=== PATIENT | male | born 1960 | race Caucasian/White ===

== ENCOUNTER → 2017-11-24 | Outpatient (CLI) | payer BC | END | disposition home or self-care (01) | LOC: C.LABBFT 14:34 | PROVIDERS: ATTEND Internal Medicine | DX: N41.9 Inflammatory disease of prostate, unspecified (principal) ==

== ENCOUNTER → 2017-11-24 | Outpatient (CLI) | payer BC | END | disposition home or self-care (01) | LOC: C.LABBFT 14:00 | PROVIDERS: ATTEND Internal Medicine | DX: R39.9 Unspecified symptoms and signs involving the genitourinary system (principal) ==

== ENCOUNTER 2024-06-28 06:35 | Observation (INO) ==
--- NOTE | 2024-05-21 13:40 | PAT Medication Instructions ---
Medication Instructions Date of Service May 21, 2024 Home Medications Medication Instructions Recorded BiPap Machine See Rx Instructions .Route 01/14/21 .COMPLEX #1 ea BiPap Machine #1 ea 03/16/22 amlodipine 2.5 mg tablet 2.5 mg PO HS Take evening before surgery amlodipine 2.5 mg tablet 2.5 mg PO HS Other Notes NOTHING TO EAT OR DRINK AFTER MIDNIGHT If you have any questions please call us at [phone] or [phone] or [phone] or [phone]
--- NOTE | 2024-05-28 09:00 | Anesthesiology Consultation ---
Date of Service May 28, 2024 Assessment & Plan (1) Encounter for pre-operative examination: - Infectious disease screening: Per assessment on 05/28/24: No known recent infectious disease contacts or current infectious disease symptoms. - Outpatient joint assessment: Pt currently scheduled for inpatient pathway. If surgeon requests review for outpatient joint pathway, patient is not recommended candidate for outpatient joint program from anesthesia standpoint based on available information. Chart Review Chart Review: Acceptable Risk for Surgery and Patient seen in Pre Admission Testing Teaching & Discussion Pre-Anesthesia Teaching/Discussion Notes: Instructed NPO after midnight before surgery,except medications with 15 cc of water. Medication instructions provided according to the PAT guidelines. History Surgery Operation Date: 06/28/24 09:00 Proposed Procedures p Right Anterior Total Hip Arthroplasty - Teddy Rowe DO Height/Weight Height: 5 ft 8 in Weight: 129.1 kg Allergies Allergy/AdvReac Type Severity Reaction Status Date / Time No Known Allergies Allergy Verified 05/20/24 09:05 Medications Home Medications Medication Instructions Recorded Confirmed Last Taken BiPap Machine See Rx Instructions .Route 01/14/21 05/20/24 04/26/23 .COMPLEX #1 ea BiPap Machine #1 ea 03/16/22 03/25/24 Unknown amlodipine 2.5 mg tablet 2.5 mg PO HS 04/17/24 05/20/24 04/28/24 Past Medical History Medical History Deviated septum No surgery Dyslipidemia Per records, patient denies Fatty liver GERD (gastroesophageal reflux disease) History of colonic polyps History of gout Hypertension Laryngopharyngeal reflux Morbid obesity Osteoarthritis Seasonal allergies SI (sacroiliac) pain Steroid injections 12/2022 Sleep apnea BIPAP (compliant) Exercise / Class Metabolic Activity II 4-5 Yardwork/Stairs/Walk up hill (one FS: No CP, no SOB) Past Family History Family History Father Esophageal cancer Coronary heart disease Hypertension Sister Breast cancer Brother Prostate cancer, Onset Age: 55 Mother Family history of reaction to anesthesia sometimes gets confused after anesthesia Past Surgical History Surgical History H/O umbilical hernia repair History of colonoscopy 04/29/24, [facility] Past Anesthesia History No Hx of Anesthesia Complications and No Family Hx of Anesthesia Complications History of PONV No Hx of PONV and No Hx of Motion Sickness Social History Smoking Status: Never smoker Do You Dip or Chew Tobacco: No Hx Alcohol Use: No Hx Substance Use: No substance use type: does not use Review of Systems Patient denies chest pain, shortness of breath, dyspnea on exertion, fever, chills, cough, wheezing, palpitations. Physical Exam Vital Signs BP 130/84 P 60 TEMP 98.2 SP02 96%RA RESP 16 Physical Mildly decreased cervical extension range of motion. Full TMJ range of motion. TMD 3 finger breaths (difficult to palpate) Mallampati Score III (Macroglossia) Dentition: missing molar Lungs: clear throughout to auscultation Cardiac: regular rate and rhythm, no murmurs noted Spine: normal Carotid arteries: negative bruit Extremities: no LE edema Thick neck Lab Results Anesthesia Preop Results Results Anesthesia Widget: WBC 6.84 K/ul (4.8-10.8) 05/28/24 Hgb 15.9 g/dl (14.0-18.0) 05/28/24 Hct 47.0 % (42.0-52.0) 05/28/24 Plt 211 K/uL (130-400) 05/28/24 Na 139 mmol/L (136-145) 05/28/24 K 4.3 mmol/L (3.5-5.1) 05/28/24 Cl 106 mmol/L (98-107) 05/28/24 CO2 28 mmol/L (21-32) 05/28/24 BUN 21 mg/dl (6-23) 05/28/24 Creat 1.30 mg/dl (0.6-1.4) 05/28/24 Glucose Level 95 mg/dl (70-99(Fasting)) 05/28/24 PT 11.1 Seconds (9.0-12.0) 05/28/24 PTT 29 Seconds (21-31) 05/28/24 INR 1.0 (0.9-1.1) 05/28/24 Blood Type O Positive 05/28/24 Antibody Screen NEGATIVE 05/28/24 Testing Electrocardiogram Date: 05/28/24 SB with sinus arrhythmia at 49bpm. Chest X-Ray Date: 05/28/24 FINDINGS: PA and lateral chest radiographs are obtained. No prior studies are available for comparison at the time of dictation. The cardiomediastinal silhouette is top normal for projection. The lungs and pleural spaces are clear. There is no pneumothorax. The bony thorax appears intact. Degenerative change is noted in the shoulders and spine. IMPRESSION: No active disease in the chest.
--- NOTE | 2024-06-27 06:59 | History & Physical Report ---
Date of Service June 27, 2024 Assessment & Plan (1) Osteoarthritis of right hip: We will proceed with a right anterior total of arthroplasty. Postoperatively he will be started on aspirin for DVT prophylaxis and kept overnight in the hospital for postop medical management. He plans to have the hospital help set up home health for discharge. History of Present Illness Chief Complaint: Osteoarthritis of the right hip. Primary Care Provider: Lopez Kent DO Kushal is a pleasant 63-year-old male who has been dealing with chronic increasing right hip and groin pain. X-rays and clinical examination have been diagnostic for advanced osteoarthritis of the right hip. He has tried extensive conservative treatment including injections. Unfortunately, after failing conservative treatment, he has elected to proceed with a right anterior total hip arthroplasty. . Allergies Allergy/AdvReac Type Severity Reaction Status Date / Time No Known Allergies Allergy Verified 05/20/24 09:05 Home Medications Medication Instructions Recorded Confirmed Type BiPap Machine See Rx Instructions .Route 01/14/21 05/20/24 Rx .COMPLEX #1 ea BiPap Machine #1 ea 03/16/22 03/25/24 Rx amlodipine 2.5 mg tablet 2.5 mg PO HS 04/17/24 05/20/24 History Past Med/Surg History Problem List Osteoarthritis of right hip HTN (hypertension) SI (sacroiliac) pain Low HDL (under 40) Impaired fasting glucose Colonic polyp Metabolic syndrome Encounter for pre-operative examination Fatty liver GERD (gastroesophageal reflux disease) Abnormal liver enzymes (Acute) Acquired deviated nasal septum (Acute) Medical History Hypertension Laryngopharyngeal reflux Fatty liver GERD (gastroesophageal reflux disease) Sleep apnea BIPAP (compliant) History of gout History of colonic polyps Osteoarthritis SI (sacroiliac) pain Steroid injections 12/2022 Seasonal allergies Morbid obesity Deviated septum No surgery Dyslipidemia Per records, patient denies Surgical History History of colonoscopy 04/29/24, [facility] H/O umbilical hernia repair Family History Father Esophageal cancer Coronary heart disease Hypertension Sister Breast cancer Brother Prostate cancer, Onset Age: 55 Mother Family history of reaction to anesthesia sometimes gets confused after anesthesia Social History Smoking Status: Never smoker Second Hand Exposure: No; Do You Dip or Chew Tobacco: No; Hx Alcohol Use: No Hx Substance Use: No Preferred Language: Algerian Communication Ability: Effective Scada Operator Required: No Beliefs That Will Affect Care: None marital status: Single Current Living Situation: Alone current occupational status: employed current occupation: [employer] Feels Safe at Home: Yes Assistive Devices: BiPap and Cane Review of Systems All systems reviewed & are unremarkable except as noted in HPI & below. Physical Exam On physical examination the right hip, he has decreased range of motion. He has pain with internal/external rotation. All of his pain is located in the groin.. Constitutional WD/WN, vitals as above Eyes PERRL, conjunctivae normal, anicteric sclerae ENMT external ear and nose normal, oropharynx normal Neck trachea midline, no thyromegaly Respiratory normal respiratory effort Cardiovascular RRR, no murmur, no edema Gastrointestinal (Abdomen) normal bowel sounds, soft, nontender, no hepatosplenomegaly Psychiatric A+Ox3, euthymic affect Results & Data Results & Data Laboratory Results . Diagnostic Findings X-rays of the right hip show advanced osteoarthritis with joint space narrowing, osteophyte formation, and [id number] articulation. PG Care Time/CCT Total # of Minutes Spent Total Time Spent with Patient: Total time spent is greater than 50% in coordination of care (as documented) at patient's floor/unit and/or counseling patient: Coding Level of Care Code None Diagnoses Osteoarthritis of right hip M16.11
[2024-06-28] MEDS ORDERED: BUPIVACAINE 0.5 % 5 MG/1 ML PF 10ML VIAL ONE (06:52)
[2024-06-28] MEDS: FAMOTIDINE 20 MG TAB PO SCH (07:22)
[2024-06-28] MEDS: ACETAMINOPHEN 500 MG TAB PO SCH ×2 (07:22→13:48)
[2024-06-28] MEDS: GABAPENTIN 300 MG CAP PO SCH (07:23)
[2024-06-28] MEDS: LR 60ML/HR IV SCH (07:23)
[2024-06-28] MEDS: LR 500ML BOLUS, THEN 15ML/HR IV SCH (07:33)
[2024-06-28] MEDS: dexAMETHasone**PF** 10 MG/ML VIAL IV SCH (07:36)
[2024-06-28] MEDS ORDERED: fentaNYL citrate PF 100 MCG/2 ML VIAL ONE (07:38)
[2024-06-28] MEDS ORDERED: MIDAZOLAM HCL 1 MG/ML 2ML VIAL ONE (07:38)
[2024-06-28] MEDS ORDERED: PROPOFOL IV EMULSION 10 MG/ML 20 ML VIAL IV ONE (07:38)
[2024-06-28] MEDS ORDERED: KETAMINE HCL 10MG/ML SYR ONE (07:39)
--- NOTE | 2024-06-28 07:56 | History & Physical Bridge Note ---
Date of Service June 28, 2024 History & Physical Bridge Note I have examined the patient, reviewed the History & Physical and in the interval since the performance of the History & Physical I have noted the following changes of clinical significance: no changes noted
[2024-06-28] MEDS ORDERED: ONDANSETRON INJ 2 MG/ML 2 ML VIAL IV PRN ×2 (08:42→12:37)
[2024-06-28] MEDS ORDERED: fentaNYL citrate PF 100 MCG/2 ML VIAL IV PRN (08:42)
[2024-06-28] MEDS ORDERED: ATROPINE SULFATE 0.1 MG/ML 10ML SYR IV PRN (08:42)
[2024-06-28] MEDS ORDERED: ePHEDrine sulfate 50 MG/ML AMP IV PRN (08:42)
[2024-06-28] MEDS: TRANEXAMIC ACID 1,000 MG **IV Pre-op IV SCH (08:44)
[2024-06-28] MEDS: ceFAZolin 3000MG 3,000 MG/72.5 ML BAG IV SCH (08:55)
[2024-06-28] MEDS ORDERED: ePHEDrine sulfate 50 MG/ML AMP ONE (09:17)
[2024-06-28] MEDS ORDERED: ONDANSETRON INJ 2 MG/ML 2 ML VIAL ONE (09:29)
[2024-06-28] MEDS: ORTHO JOINT ANESTHETIC ONE (09:51)
[2024-06-28] MEDS: ROPIV 0.5% 246mg, Ketorolac 30mg, EPINEPHrine 0.5mg in NSS INFIL SCH (09:51)
--- NOTE | 2024-06-28 10:16 | Operative Report ---
PG Post Operative Report Pre & Post Diagnosis Operation Date: 06/28/24 09:00 Pre-Op Diagnosis: Degenerative Joint Disease Right Hip Post-Op Diagnosis: Degenerative Joint Disease Right Hip I identified the patient and participated in the time-out.: Yes Procedure Operation Date: 06/28/24 09:00 Actual Procedures p Right Anterior Total Hip Arthroplasty(Right) - Teddy Rowe DO Surgeon Teddy Rowe DO Software Design Analyst Teddy Crawley PA-C Estimated Blood Loss 350 Findings Consistent with Post-Op Diagnosis Specimens Right humeral head Description of Procedure Implants used I used a ZimmerBiomet total hip arthroplasty system with a size 3 high offset Avenir Complete stem, a 52 mm G7 cup with a 25mm screw, an E1 polyethylene liner, a 36 mm ceramic head with a +3.5 neck. Kushal arrived at the hospital for the above procedure. He was seen in the preoperative holding area and the operative extremity was identified and signed. He was given a spinal anesthetic, a preoperative antibiotic, and TXA. He was then taken back to the operating room and laid on the table in the supine position. He was given basic sedation. The operative leg was secured to a Puristst leg positioner. The hip was then prepped and draped in sterile fashion. A timeout was done and the patient and the operative extremity was properly identified. An anterior approach was used. Dissection was taken down through the fascia and the tensor muscle belly was retracted laterally and the rectus was retracted medially. The circumflex vessels were identified and ligated. The capsule was then incised and tagged for later repair. The femoral neck was then cut and the femoral head was removed. The acetabulum was exposed. Time was spent doing a complete circumferential labral release. Sequential reaming of the acetabulum up to a size 51 reamer was done. Final reamings were done under fluoroscopy to ensure appropriate version. A Biomet 52 mm G7 cup was then impacted into place. A single 25 mm screw was placed. The E1 polyethylene liner was then snapped into place. Surrounding soft tissues were then injected with 100 cc of an ort hopedic pain control cocktail. The proximal femur was then exposed. Sequential broaching up to a size 3 broach was done. Off that broach a size 36 head with a +3.5 neck was trialed. The hip was reduced and fluoroscopic images showed anatomic alignment of the implants in acceptable length. The broach was removed. The final size 3 high offset Avenir Complete stem was then impacted into place. A ceramic 36 mm head with a +3.5 neck was then impacted onto the stem and the hip was reduced. Final fluoroscopic images showed anatomic alignment of the hip. The capsule was then closed with #1 Vicryl suture. A dilute betadyne lavage was then done for 3 minutes. The joint was then irrigated with normal saline solution. The fascia was closed with #1 PDS suture. Skin was closed with 2-0 Vicryl, cheryl, and a Silverlon dressing. He was then transferred to a hospital bed and taken to the post anesthesia care unit in stable condition. He tolerated the procedure well. Teddy Crawley PA-C, was present for the entire procedure. He was critical for patient positioning, prepping, draping, retraction exposure, wound closure and application of sterile dressing. I attest to the content of the Intraoperative Record and any orders documented therein. Any exceptions are noted below.
[2024-06-28] MEDS: TRANEXAMIC ACID 1,000 MG **IV Intra-op IV SCH (10:20)
--- NOTE | 2024-06-28 11:13 | Fluoroscopy Report ---
FL hip RT 1V CLINICAL HISTORY: Right anterior total hip arthroplasty COMPARISON STUDY: None. FLUOROSCOPY TIME: 11 seconds. FLUOROSCOPY IMAGES: 1 Ka,r: 5.2 mGy FINDINGS: There is a right total arthroplasty. The hardware is intact. No fracture or dislocation. Blank rgical clips overlying the pelvis. IMPRESSION: Fluoroscopic assistance as above. ACT 112: Negative or not required by law. Electronically signed by: Rudy Johnson M.D. 06/28/2024 11:11 AM
--- NOTE | 2024-06-28 12:13 | Anesthesiology Progress Note ---
Date of Service June 28, 2024 Anesthesia Post Procedure Vital Signs Vital Signs: Temp Pulse Pulse Resp BP Pulse Ox O2 Del Method 06/28/24 12:00 67 19 115/70 93 Nasal Cannula 06/28/24 11:45 70 12 117/67 94 Nasal Cannula 06/28/24 11:35 68 15 112/69 94 Nasal Cannula 06/28/24 11:25 97.3 F L 72 16 113/69 94 Nasal Cannula 06/28/24 11:15 70 14 116/73 92 Nasal Cannula 06/28/24 11:05 71 17 111/70 94 Nasal Cannula 06/28/24 10:55 73 20 97/63 L 93 Oxymask 06/28/24 10:45 97.3 F L 83 21 110/66 94 Oxymask 06/28/24 07:14 Room Air 06/28/24 07:14 98.4 F 77 20 129/87 94 Room Air O2 Flow Rate 06/28/24 12:00 2 06/28/24 11:45 2 06/28/24 11:35 2 06/28/24 11:25 2 06/28/24 11:15 4 06/28/24 11:05 4 06/28/24 10:55 13 06/28/24 10:45 13 06/28/24 07:14 06/28/24 07:14 Transfer of Care Handoff Completed per policy Notes Mental Status: alert / awake / arousable and participated in evaluation Patient Amnestic to Procedure: Yes Nausea / Vomiting: adequately controlled Pain: adequately controlled Airway Patency, RR, SpO2: stable & adequate BP & HR: stable & adequate Hydration State: stable & adequate Neuraxial Anesthesia: was administered and sensory block is resolving Anesthetic Complications: no major complications apparent and Pt Satisfied with anesthetic care
--- NOTE | 2024-06-28 12:27 | XRay Report ---
SINGLE VIEW PELVIS; SINGLE VIEW RIGHT HIP CLINICAL HISTORY: Postoperative examination. FINDINGS: An AP portable view of the hips and pelvis with a crosstable lateral portable view of the r ight hip are compared to study dated 12/07/2023. A bipolar right hip arthroplasty is in near-anatomic alignment. No acute fracture is identified. There are expected postoperative changes overlying the r ight hip including skin clips, subcutaneous gas, and soft tissue swelling. Mild arthritic change is s een in the left hip. IMPRESSION: Expected postoperative findings status post right hip arthroplasty. No acute fracture is seen. ACT 112: Negative or not required by law. Electronically signed by: Sohan Aguirre M.D. 06/28/2024 12:26 PM
[2024-06-28] MEDS ORDERED: MAGNESIUM HYDROXIDE SUSP 30 ML UDC PO PRN (12:37)
[2024-06-28] MEDS ORDERED: NON-FORMULARY MEDICATION (Bipap Machine misc) SCH (12:37)
[2024-06-28] MEDS ORDERED: NALOXONE HCL 0.4 MG/1 ML VIAL/CARP IV PRN (12:37)
[2024-06-28] MEDS ORDERED: HYDROmorphone INJ 0.5 MG/0.5 ML SYR IV PRN (12:37)
[2024-06-28] MEDS ORDERED: bisacodyL 10 MG SUPP PR PRN (12:37)
[2024-06-28] MEDS ORDERED: oxyCODONE HCL IR 5 MG TAB (IMMEDIATE RELEASE) PO PRN (12:37)
[2024-06-28] MEDS ORDERED: METOCLOPRAMIDE HCL INJ 5 MG/ML 2 ML VIAL IV PRN (12:37)
[2024-06-28] MEDS: SODIUM CHLORIDE 0.9% 1,000 ML IV SCH (13:40)
[2024-06-28] MEDS: KETOROLAC 30 MG/ML VIAL IV SCH (13:48)
[2024-06-28] MEDS: ceFAZolin 2000MG 2,000 MG/15 ML SYR IV SCH (17:05)
[2024-06-28] MEDS: DOCUSATE SODIUM 100 MG CAP PO SCH (20:28)
[2024-06-28] MEDS: SENNA 8.6 MG TAB PO SCH (20:29)
[2024-06-28] MEDS: ASPIRIN 81 MG ECTAB PO SCH (20:30)
[2024-06-28] MEDS: amLODIPine BESYLATE 5 MG TAB PO SCH (21:00)
--- NOTE | 2024-06-29 07:09 | Orthopedic Progress Note ---
Date of Service June 29, 2024 Assessment & Plan (1) Status post right hip replacement: Overall he is doing fairly well. He is not having much pain in the right hip. He will be seen by physical therapy today for ambulation and range of motion exercises. He is on aspirin for DVT prophylaxis. He can be discharged home later today. He will follow-up with orthopedics in 2 weeks. Parul Gil was seen and examined at bedside this morning. Overall is doing fairly well. He is not having much pain in the right hip. He has been up and ambulating to the bathroom. He has no complaints.. Review of Systems All systems reviewed & are unremarkable except as noted in HPI & below. Physical Exam On physical examination the right hip, the dressing is clean and dry. His leg is out full extension. He has active dorsiflexion plantarflexion of his right ankle.. Results & Data Results & Data Laboratory Results . Diagnostic Findings Postoperative x-rays of the right hip show the prosthesis to be in anatomic alignment without any evidence of fracture, dislocation, or loosening.. PG Care Time/CCT Total # of Minutes Spent Total Time Spent with Patient: Total time spent is greater than 50% in coordination of care (as documented) at patient's floor/unit and/or counseling patient: Coding Level of Care Code 87441 Post Operative Follow-Up Diagnoses Status post right hip replacement Z96.641
--- NOTE | 2024-06-29 07:10 | Discharge Summary ---
Date of Service June 29, 2024 Admission HPI (Per Admitting) Kushal is a pleasant 63-year-old male who has been dealing with chronic increasing right hip and groin pain. X-rays and clinical examination have been diagnostic for advanced osteoarthritis of the right hip. He has tried extensive conservative treatment including injections. Unfortunately, after failing conservative treatment, he has elected to proceed with a right anterior total hip arthroplasty. . Admission Exam (Per Admitting) On physical examination the right hip, he has decreased range of motion. He has pain with internal/external rotation. All of his pain is located in the groin.. Principal Diagnosis Same as "Discharge Diagnosis" noted below under Discharge Instructions. Discharge Exam On physical examination the right hip, the dressing is clean and dry. His leg is out full extension. He has active dorsiflexion plantarflexion of his right ankle.. Discharge Data Procedures Performed Operation Date: 06/28/24 09:00 Actual Procedures p Right Anterior Total Hip Arthroplasty(Right) - Teddy Rowe DO Ordered Studies 06/28/24 07:00 FL hip RT 1V Routine Hospital Course (1) Status post right hip replacement: On June 28, 2024 Kushal arrived at [facility] and underwent a right hip replacement without complication. He had a spinal anesthetic. Postoperatively he was started on aspirin for DVT prophylaxis and transferred to the general orthopedic floors. His hospital course was uneventful. On postop day #1, his vital signs were stable and his pain was well-controlled. He was able to participate well with physical therapy doing ambulation and range of motion exercises. He was then discharged to home. He will follow-up with orthopedics in 2 weeks. PG Care Time/CCT Total # of Minutes Spent Total Time Spent with Patient: Total time spent is greater than 50% in coordination of care (as documented) at patient's floor/unit and/or counseling patient: Discharge Plan Discharge Items Patient Disposition: Home - Self-Care Reason For Visit: POST SURGICAL CARE Discharge Diagnosis: Right hip replacement Activity: Per Instructions section Non-emergency contact: Surgeon Call non-emergency contact if: your wound has increased redness and your wound has increased drainage Follow-up/Referrals: Lopez Kent DO [Primary Care Provider] - Diet: Regular Addtl Attending Provider Instructions: Activity and Therapy Recommendations: * If you are using [facility] then therapy will be provided at your home until they feel you have accomplished all of your goals. * If you are using [facility] then Physical Therapy will be provided until they feel you are ready to start Outpatient Physical Therapy. * If you are not using home therapy then Outpatient Physical Therapy should start about 3-5 days from your day of surgery. Therapy will last about 6-10 weeks * You were shown a series of exercises in the hospital. Do these exercises three times each day including the exercises you were shown in physical therapy. * Get up and walk several times each day.~ For the first four weeks, try not to stand or walk for more than one hour at a time. If you do stand or walk for more than one hour, you will not hurt anything, but your leg will likely swell.~~ * As you feel comfortable, you may change from the walker or crutches to a cane and~then to independent walking. Medications: * Narcotic You will likely be sent home from the hospital with a prescription for the narcotic pain medication that worked best throughout your stay. * Cefadroxil -take the antibiotic twice a day for 10 days to help prevent infection. * Aspirin Most patients will be required to take Aspirin 81mg twice a day for 6 weeks after surgery. This is obtained [id number] and a prescription is not necessary. * Other medications may be prescribed for specific circumstances. If you have any questions, please call the office at . * Resume previous home medications unless otherwise instructed TEDs/Elastic Stockings: The white elastic stockings help limit swelling and prevent blood clots from for larisa in your legs. The more you wear them, the more they work. Wear them for six weeks. Dressing Care: Leave the Silverlon dressing in place for 7 days. After 7 days you may remove the dressing. If the incision is not draining then you may leave the cheryl open to air. If there is a little bit of drainage or if the cheryl are getting stuck on your clothing then cover the incision with a dry dressing. The cheryl will be removed at your 2 week follow-up appointment. Showering: You may shower with the Silverlon dressing in place. Do not let the shower spray hit the dressing directly. Pat the Silverlon dressing dry. If the dressing becomes wet underneath, then simply remove the dressing. Keep the incision dry until you are 7 days out from the day of surgery. After 7 days you may remove the Silverlon dressing and shower with the cheryl exposed. Let soapy water run over the cheryl and pat them dry. Do not scrub or soak the incision. Things To Watch For: * Drainage from the incision site that occurs more than one week after your surgery. * Increased redness at the incision site. * Fever above 102 degrees Fahrenheit. * Unusual chest pain or shortness of breath. * Call [facility] at with any of the above problems Follow-Up Visit: Follow-up with Dr. Rowe's PA (Teddy Crawley) 2-3 weeks after your day of surgery. He will remove your cheryl and answer any questions. If you have any additional questions or concerns, Dr Rowe is usually in the office at the same time and will be available An appointment was probably scheduled when you signed-up for surgery in the office. If you have any questions call Office Instructions: More detailed instructions as well as Frequently Asked Questions were provided in a folder by our office when you signed-up for surgery. Please review these instructions when you get home. If you have any further questions or concerns, please feel free to call the office at [phone] Pending Studies at Discharge: No Stand-Alone Forms: My [facility], Smoking Cessation Medications and DC Order Prescriptions: New oxycodone 5 mg Tablet 5 mg PO Q4H PRN (Reason: pain) Qty: 30 0RF aspirin 81 mg Tablet,Delayed Release (Dr/Ec) 81 mg PO BID 42 Days Qty: 84 0RF cefadroxil 500 mg capsule 500 mg PO BID 10 Days Qty: 20 0RF Continued (DME) BiPap Machine Misc .Route Qty: 1 0RF Rx Instructions: Decrease pressure to 16/12 centimeters of water, aero care BiPap Machine Misc See Rx Instructions .ROUTE .COMPLEX Qty: 1 0RF Rx Instructions: BiPAP 18/13 with a bi-Flex of 2, tubing filters and supplies, mask fit to patient comfort, heated humidification, compliance, DME of patient choice; amlodipine 2.5 mg tablet 2.5 mg PO HS Discharge Orders: Discharge Order (Routine); Ordered 06/29/24 Ordered By: Teddy Rowe Admission Data Admit Date/Time: 06/28/24 10:47 Attending Provider: Teddy Rowe Admit Provider: Teddy Rowe Primary Care Provider: Lopez Kent Other Providers: [facility]
[2024-06-29] MEDS: dexAMETHasone 4 MG TAB PO SCH (08:08)
[2024-06-29 08:11] VITALS: BP 123/71; PULSE 92; RESP 16; TEMP 97.3; O2SAT 94
[2024-06-29] MEDS: MULTIVITAMIN TAB PO SCH (09:44)
== END 2024-06-29 12:40 | disposition home or self-care (01) ==
LOC: ASU 06:35 → 3N 06:35